=== PATIENT | male | born 1985 | race Caucasian/White ===

== ENCOUNTER 2022-09-18 06:46 | Outpatient (CLI) | payer OTHER, SELFPAY ==
[2022-09-18 07:16] LABS: Volume Semen 1.5 mL (2-5)
[2022-09-18 07:17] LABS: PH Semen 7.5 (7.0-8.0); Pathology Referral Yes; Sperm Immotility 65 % (50-60); Sperm Non-Progressive Motility 10 % (5-10); Sperm Progressive Motility 25 % (31-34); Viscosity Semen High Viscosity; White Blood Count Semen 0-4 /hpf
[2022-09-18 08:32] LABS: Sperm Vitality-% Live Sperm 55 %
[2022-09-18 08:41] LABS: Side 1 110; Side 2 103; Sperm Count 21.3 mill/mL (40-160)
[2022-09-18 08:42] LABS: Side WITHIN 10% 6
== END 2022-09-18 06:47 | disposition home or self-care (01) ==
PROVIDERS: Visit Provider Nurse Practitioner Women's Health
DX: N46.9 Male infertility, unspecified (principal)
CPT/HCPCS: 80503; 89320

== ENCOUNTER → 2023-06-14 09:37 | Outpatient (BNVA) | payer OTHER, SELFPAY | PROVIDERS: PCP Nurse Practitioner Family; Visit Provider Nurse Practitioner Family | DX: R35.0 Frequency of micturition (principal); R42 Dizziness and giddiness | CPT/HCPCS: 80053; 80061; 84443; 85025 ==

== ENCOUNTER 2023-10-24 06:44 | Outpatient (CLI) | payer OTHER, SELFPAY ==
[2023-10-24 15:14] LABS: Volume Semen 1.5 mL (2-5)
[2023-10-24 15:21] LABS: PH Semen 7.5 (7.0-8.0)
[2023-10-24 15:22] LABS: Viscosity Semen High Viscosity
[2023-10-24 15:24] LABS: Sperm Immotility 5 % (50-60); Sperm Non-Progressive Motility 5 % (5-10); Sperm Progressive Motility 80 % (31-34)
[2023-10-24 15:29] LABS: Epithelial Count Semen Rare /hpf
[2023-10-24 15:34] LABS: Pathology Referral Yes
== END 2023-10-24 06:45 | disposition home or self-care (01) ==
LOC: LAB 06:45
PROVIDERS: PCP Nurse Practitioner Family; Visit Provider Nurse Practitioner Women's Health
DX: N46.9 Male infertility, unspecified (principal)
CPT/HCPCS: 80503; 89320